=== PATIENT | female | born 1965 | race Two or more races ===

== ENCOUNTER 2020-08-01 18:20 | Emergency (ER) | payer SELFPAY ==
[~2020-08-01] VITALS: Ht 157.5 cm; Wt 84.5 kg
[2020-08-01 19:02] LABS: BASOPHILS % (AUTO) 1 % (0-1); EOSINOPHILS % (AUTO) 2 % (1-7); LYMPHOCYTES % (AUTO) 22 % (22-44); MEAN CORPUSCULAR HEMOGLOBIN 25.1 pg (27.0-34.8); MEAN CORPUSCULAR HGB CONC 31.9 g/dL (32.4-35.8); MEAN PLATELET VOLUME 8.5 fL (7.4-10.4); MONOCYTES % (AUTO) 12 % (2-9); NEUTROPHILS % (AUTO) 64 % (42-75); PLATELET COUNT 244 x10^3/uL (130-400); RED BLOOD COUNT 4.32 x10^6/uL (3.82-5.3); RED CELL DISTRIBUTION WIDTH 16.6 % (9.6-15.2)
[2020-08-01 19:11] LABS: ALBUMIN 3.6 g/dL (3.4-5.0); ANION GAP 3 mmol/L (5-15); CALCIUM 8.4 mg/dL (8.5-10.1); CHLORIDE 109 mmol/L (98-107); MD NO
[2020-08-01 19:15] LABS: ALANINE AMINOTRANSFERASE 56 U/L (12-78); ALKALINE PHOSPHATASE 86 U/L (45-117); BILIRUBIN,TOTAL 0.4 mg/dL (0.2-1.0); CREATININE 0.86 mg/dL (0.55-1.02); TOTAL PROTEIN 7.6 g/dL (6.4-8.2)
--- NOTE | 2020-08-01 20:48 | NUR ---
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 STEADY GAIT.
[2020-08-01 21:35] VITALS: BP 128/85
--- NOTE | 2020-08-01 21:51 | NUR ---
pt cc of cough, states her daughter has covid. O2 sats in high 90's on RA. pt dc to home, ambulatory with steady gait. instructed on staying isolated until symptoms resolve. all questions answered.
== END 2020-08-01 21:56 | disposition home or self-care (01) ==
LOC: ED 21:18
DX: R05 Cough (principal); B34.9 Viral infection, unspecified; R51.9 Headache, unspecified; M79.10 Myalgia, unspecified site
CPT/HCPCS: 36415; 71045; 80053; 85025; 87635; 99284